=== PATIENT | female | born 1990 | race Caucasian/White ===

== ENCOUNTER 2017-01-28 23:47 | Emergency (ER) | payer MEDICAID, OTHER ==
[~2017-01-28] VITALS: Ht 167.6 cm; Wt 57.0 kg
[2017-01-29 00:01] VITALS: Ht 167.6 cm; Wt 57.0 kg
[2017-01-29 02:50] LABS: URINE BLOOD (Dip) POC Negative (NEGATIVE)
--- NOTE | 2017-01-29 04:06 | ERD ---
ER Documentation Chief Complaint Date/Time DATE: 01/29/17 TIME: 04:03 Chief Complaint pelvic pain, 8 weeks ,dysuria HPI This Azerbaijani-speaking pleasant 26-year-old female presents to emergency department today with low bladder pain, back pain, dysuria, patient denies hematuria, vaginal bleeding, nausea or vomiting. Patient states that she is 6 weeks , -0 patient states that she was evaluated at a clinic last menstrual period was 12/10/2016. ROS All systems reviewed and are negative except as per history of present illness. Allergies Allergies: Coded Allergies: No Known Allergy (Unverified , 01/29/17) PMhx/Soc Medical and Surgical Hx: pt denies Medical Hx, pt denies Surgical Hx Hx Alcohol Use: No Hx Substance Use: No Hx Tobacco Use: No Smoking Status: Never smoker Physical Exam Vitals Vital Signs Date Time Temp Pulse Resp B/P Pulse Ox O2 Delivery O2 Flow Rate FiO2 01/29/17 00:01 99.1 69 18 147/60 98 Vitals stable, triage notes reviewed Physical Exam Const: Well-appearing, no acute Head: Atraumatic Eyes: Normal Conjunctiva PERRLA, EOMI ENT: Normal External Ears, Nose and Mouth. Neck: Resp: Respirations even and unlabored, no respiratory distress Cardio: Abd: Soft, non tender no CVA tenderness Skin: Back: No flank pain, no cervical point tenderness or paraspinal tenderness Ext: Neur: Awake and alert Psych: Normal Mood and Affect Results 24 hrs Laboratory Tests Test 01/29/17 02:54 01/29/17 04:45 Bedside Urine pH (LAB) 6.0 Bedside Urine Protein (LAB) Negative Bedside Urine Glucose (UA) Negative Bedside Urine Ketones (LAB) Negative Bedside Urine Blood Negative Bedside Urine Nitrite (LAB) Negative Bedside Urine Leukocyte Esterase (L Trace Beta HCG, Quantitative 97739.0mIU/ml Current Medications Medications (Trade) Dose Ordered Sig/[place] Route PRN Reason Start Time Stop Time Status Last Admin Dose Admin Acetaminophen 650 mg 650 mg ONCE ONCE PO 01/29/17 04:30 01/29/17 04:31 DC Sodium Chloride (NS) 1,000 ml @ 1,000 mls/hr Q1H STAT IV 01/29/17 04:09 01/29/17 05:08 DC 01/29/17 04:44 Procedures/MDM PROCEDURE: Obstetrical ultrasound. CLINICAL INDICATION: Vaginal bleeding. TECHNIQUE: Multiple sonographic images of the pelvis were obtained with transabdominal and endovaginal technique. Images were obtained with morgan scale and color Doppler. COMPARISON: No prior studies are available for comparison. FINDINGS: There is an intrauterine gestational sac with a pole identified. heart tones of 140 beats per minute are identified. The crown-rump length averages 0.77 cm, compatible with 6 weeks and 5 days. The mean sac diameter averages 1.51 cm, compatible with 6 weeks and 1 day. A yolk sac is identified. There is a subchorionic collection measuring up to 1.8 cm. There is mild free fluid within the posterior cul-de-sac. The right ovary measures 3.8 x 2.3 x 2.5 cm and demonstrates normal flow. The left ovary is not visualized. There is a corpus luteum cyst within the right ovary measuring 2.5 cm. There is no suspicious adnexal mass identified. IMPRESSION: Single live intrauterine with an estimated gestational age of 6 weeks and 3 days, with an ultrasound SYD of 09/21/2017. Subchorionic hemorrhage. Right ovarian 2.5 cm corpus luteum cyst. Mild pelvic free fluid. Left ovary not visualized. .Ad Ha MD, MD Date Time Electronically viewed and signed by .Ad Ha MD, on 01/29/2017 04:58 This 26-year-old female presents to emergency department today for evaluation of abdominal pain, cramping, back pain, and dysuria. Patient is 6 weeks , 3 para 2. Denies vaginal bleeding, vaginal discharge, abnormal nausea or vomiting. Urinary tract infection suspected, urinalysis shows trace leukocytosis likely contamination, no nitrates or microscopic hematuria. Threatened miscarriage, ectopic suspected. Pelvic ultrasound impression single living intrauterine with estimated gestational age of 6 weeks and 3 days with ultrasound SYD. Subchorionic hemorrhage. Right of free 2.5 cm "pissed luteum cyst. Mild pelvic free fluid. Left ovary not visualized. Beta quant 32828.0 patient treated with Tylenol, liter of IV fluid. Patient reports feeling improvement after treatment. Plan to discharge home with Tylenol. appears normal return to emergency department if pain returns, or vaginal bleeding.. I feel the patient is stable for discharge at this time outpatient management by gynecology. I have discussed results, examination findings, the treatment plan with the patient and family present prior to discharge. Indications for emergent reevaluation, side effects of medication were also discussed. All questions were answered. Patient verbalizes understanding and agrees with plan of care. Departure Diagnosis: Primary Impression: Pelvic pain in Condition: Good Patient Instructions: Pelvic Pain, Unknown Cause Additional Instructions: Thank you for for coming to [facility] for your care today. Please ask your nurse or provider if you have questions about your care today and do not leave until all your questions have been answered. Please use any medications given as directed and follow-up with your doctor (or the doctor you were referred to) in the next 2-3 days. If you do not have a primary care doctor you [place] [facility] [place] [facility] [place] You may also use motrin and tylenol as needed for fever and/or pain unless instructed otherwise by your provider or nurse. Indications for more urgent follow-up have been discussed, but you may return to the Emergency Department at ANY time for any worrisome or worsening symptoms. If you have abdominal pain, please know that no test or exam you received is perfect and you should follow up within 8 hours for continued pain. If you had any imaging studies today, such as an X-Ray or CT Scan, these studies will be reviewed later by a radiologist. You will be called if there are important findings that were not identified today, so make sure the contact information you provided at registration is correct. If you received any narcotic pain control medicine today, such as Vicodin, Morphine or Dilaudid, your coordination and judgment may be affected for a number of hours. Please do not drive or operate heavy machinery, and you may want someone to assist you at home. If you were given a prescription for narcotic medication, be aware that it is very addictive- use sparingly and only if necessary. TONE SEGURA Jan 29, 2017 04:06
[2017-01-29] MEDS ORDERED: SOD CHLORIDE 0.9% 1,000 ML IV STA (04:09)
[2017-01-29] MEDS ORDERED: ACETAMINOPHEN 325 MG TAB PO ONE (04:30)
--- NOTE | 2017-01-29 04:58 | RADRPT ---
PROCEDURE: Obstetrical ultrasound. CLINICAL INDICATION: Vaginal bleeding. TECHNIQUE: Multiple sonographic images of the pelvis were obtained with transabdominal and endova ginal technique. Images were obtained with morgan scale and color Doppler. COMPARISON: No prior studies are available for comparison. FINDINGS: There is an intrauterine gestational sac with a pole identified. heart tones of 140 beat s per minute are identified. The crown-rump length averages 0.77 cm, compatible with 6 weeks a nd 5 days. The mean sac diameter averages 1.51 cm, compatible with 6 weeks and 1 day. A yolk sac is identified. There is a subchorionic collection measuring up to 1.8 cm. There is mild free fluid within the posterior cul-de-sac. The right ovary measures 3.8 x 2.3 x 2.5 c m and demonstrates normal flow. The left ovary is not visualized. There is a corpus luteum cyst wi thin the right ovary measuring 2.5 cm. There is no suspicious adnexal mass identified. IMPRESSION: Single live intrauterine with an estimated gestational age of 6 weeks and 3 days, with an ultrasound SYD of 09/21/2017. Subchorionic hemorrhage. Right ovarian 2.5 cm corpus luteum cyst. Mild pelvic free fluid. Left ovary not visualized. .Ad Ha MD, Date Time Electronically viewed and signed by .Ad Ha MD, MD on 01/29/2017 04:58 .T/
[2017-01-29] MEDS ORDERED: ACET325T33 PO (06:41)
== END 2017-01-29 07:12 | disposition home or self-care (01) ==
LOC: FTE 23:47
DX: O26.891 Other specified pregnancy related conditions, first trimester (principal); R10.2 Pelvic and perineal pain; Z3A.01 Less than 8 weeks gestation of pregnancy
CPT/HCPCS: 76801; 76817; 81003; 84702; J7030; 36415

== ENCOUNTER 2017-05-31 10:08 | Inpatient (IN) | payer MEDICAID ==
[~2017-05-31] VITALS: Ht 154.9 cm; Wt 68.6 kg
[~2017-05-31 10:08] MED LIST: ACET325T33 PO
[2017-05-31 10:35] VITALS: Ht 154.9 cm; Wt 68.6 kg
[2017-05-31 10:36] VITALS: BP 96/54; PULSE 102; RESP 20
--- NOTE | 2017-05-31 10:36 | RADRPT ---
PROCEDURE: US OB. Ultrasound cervix CLINICAL INDICATION: Decreased movements , pain TECHNIQUE: Transabdominal views of the pelvis are available for review. In addition, transvaginal images of the cervix were obtained. COMPARISON: No prior studies are available for comparison. FINDINGS: There is a single intrauterine gestation in a breech position. The heart rate is noted at 148 bpm. The placenta is anterior. MVP measures 6.1 cm. The cervix measures 3.5 cm in length. The cervix is closed. RPTAT: AA IMPRESSION: Normal MVP. Cervix is closed and measures 3.5 cm in length. .Ab Sims MD, MD Date Time Electronically viewed and signed by .Ab Sims MD, MD on 05/31/2017 10:36 .S/
[2017-05-31 11:13] LABS: ADD UMIC YES; UR AMORPHOUS CRYSTAL FEW /HPF (NONE SEEN); UR ASCORBIC ACID NEGATIVE (NEGATIVE); UR BACTERIA MODERATE /HPF (NONE SEEN); UR BILIRUBIN (Dip) NEGATIVE (NEGATIVE); UR BLOOD (Dip) NEGATIVE (NEGATIVE); UR CLARITY CLOUDY (CLEAR); UR COLOR YELLOW (YELLOW); UR GLUCOSE (Dip) NEGATIVE (NEGATIVE); UR KETONES (Dip) NEGATIVE (NEGATIVE); UR LEUKOCYTE ESTERASE (Dip) 3+ Leu/ul (NEGATIVE); UR MUCUS FEW /HPF (NONE SEEN); UR NITRITE (Dip) POSITIVE (NEGATIVE); UR RBC 6 /HPF (0-5); UR SPECIFIC GRAVITY (Dip) 1.016 (1.003-1.030); UR SQUAMOUS EPITHELIAL CELL MODERATE /HPF (FEW); UR TOTAL PROTEIN (Dip) 1+ mg/dl (NEGATIVE); UR UROBILINOGEN (Dip) NEGATIVE (NEGATIVE)
[2017-05-31 12:13] LABS: ABNORMAL IP MESSAGE 1; BASOPHILS % 0.1 % (0.0-2.0); HEMATOCRIT 29.6 % (37.0-47.0); HEMOGLOBIN 9.8 g/dl (12.0-16.0); LYMPHOCYTES # 0.6 10^3/ul (0.8-2.9); LYMPHOCYTES % 4.1 % (15.0-51.0); MEAN CORPUSCULAR HEMOGLOBIN 31.4 pg (29.0-33.0); MEAN CORPUSCULAR HGB CONC 33.1 g/dl (32.0-37.0); MEAN CORPUSCULAR VOLUME 94.9 fl (82.0-101.0); MEAN PLATELET VOLUME 10.9 fl (7.4-10.4); MONOCYTE # 0.7 10^3/ul (0.3-0.9); MONOCYTES % 5.3 % (0.0-11.0); NEUTROPHIL # 12.6 10^3/ul (1.6-7.5); NEUTROPHILS % 89.9 % (39.0-77.0); PLATELET COUNT 171 10^3/UL (140-415); RED BLOOD COUNT 3.12 10^6/ul (4.20-5.40); RED CELL DISTRIBUTION WIDTH 13.3 % (11.5-14.5); WHITE BLOOD COUNT 14.1 10^3/ul (4.8-10.8)
[2017-05-31 12:20] LABS: POSITIVE DIFF @See below
[2017-05-31] MEDS ORDERED: CEFTRIAXONE 2 GM INJ IM ONE (12:30)
[2017-05-31] MEDS ORDERED: LACTATED RINGER'S 1,000 ML IV SCH (12:40)
[2017-05-31] MEDS ORDERED: NIFEdipine 10 MG CAP PO ONE (13:30)
[2017-05-31] MEDS ORDERED: CEFAZOLIN 1 GM/50 ML (PMX) 50 ML IV SCH (13:30)
[2017-05-31] MEDS ORDERED: NACL 0.9% 3 ML SYG IV SCH (13:30)
[2017-05-31] MEDS ORDERED: CEFAZOLIN 2 GM/50 ML (PMX) 50 ML IV ONE (14:00)
[2017-05-31 14:30] LABS: ABNORMAL IP MESSAGE 1; BASOPHILS % 0.1 % (0.0-2.0); HEMATOCRIT 28.5 % (37.0-47.0); HEMOGLOBIN 9.5 g/dl (12.0-16.0); LYMPHOCYTES # 0.3 10^3/ul (0.8-2.9); LYMPHOCYTES % 3.4 % (15.0-51.0); MEAN CORPUSCULAR HEMOGLOBIN 31.4 pg (29.0-33.0); MEAN CORPUSCULAR HGB CONC 33.3 g/dl (32.0-37.0); MEAN CORPUSCULAR VOLUME 94.1 fl (82.0-101.0); MEAN PLATELET VOLUME 10.9 fl (7.4-10.4); MONOCYTE # 0.1 10^3/ul (0.3-0.9); MONOCYTES % 1.2 % (0.0-11.0); NEUTROPHIL # 8.7 10^3/ul (1.6-7.5); NEUTROPHILS % 94.8 % (39.0-77.0); PLATELET COUNT 158 10^3/UL (140-415); RED BLOOD COUNT 3.03 10^6/ul (4.20-5.40); RED CELL DISTRIBUTION WIDTH 13.3 % (11.5-14.5); WHITE BLOOD COUNT 9.2 10^3/ul (4.8-10.8)
[2017-05-31 14:32] LABS: POSITIVE DIFF @See below
[2017-05-31 14:55] LABS: ALBUMIN 2.8 g/dl (3.3-4.9); ALBUMIN/GLOBULIN RATIO 0.87; BILIRUBIN,INDIRECT 0.7 mg/dl (0-1.1); BILIRUBIN,TOTAL 0.7 mg/dl (0.2-1.3); CREATININE 0.48 mg/dl (0.44-1.00)
[2017-05-31 15:03] LABS: POTASSIUM 2.7 mmol/L (3.5-5.1)
[2017-05-31] MEDS ORDERED: POTASSIUM CHLORIDE (SR) 20 MEQ TAB PO STA (15:11)
--- NOTE | 2017-05-31 15:13 | CONS ---
Date/Time of Note Date/Time of Note DATE: 05/31/17 TIME: 14:59 Assessment/Plan Assessment/Plan Additional Assessment/Plan 1. Acute pyelonephritis - Patient has +UA and CVA tenderness which is most consistent with pyelonephritis - Agree with Ceftriaxone 1gm [id number]. If fevers persist will consider ID consult for assistance - Tylenol PRN for fevers - Blood cultures drawn and results pending - CMP ordered and results pending 2. Sore Throat - throat swab sent 3. Leukocytosis - WBC trending down since admission - Will continue to monitor 4. Intrauterine - care per primary OB team - On vitamins 5. Mild anemia most likely secondary to - will do iron studies 6. hypokalemia - 2.7, replace - Will continue to monitor Thank you for the consult. Please call with any questions Consultation Date/Type/Reason Admit Date/Time May 31, 2017 at 13:17 Date of Consultation: May 31, 2017 Reason for Consultation Medical comanagement Hx of Present Illness 26 yo F with PMH hypotension presents to ED with c/o fever since last night and abdominal pressure for the past 2 days. Patient was found to have temp 100.3F in ED but when reached the floor, fever was 103F. Patient denies experiencing these symptoms during her past pregnancies. She does c/o epigastric discomfort with shortness of breath. Her abdominal pressure is in the lower abdomen/ suprapubic area but denies any dysuria, blood in urine, or discharge. Denies any nausea, vomiting, headaches, constipation, diarrhea, or palpitations. Constitutional: febrile, No disoriented, No poor po Eyes: no complaints ENT: congestion, sore throat Respiratory: shortness of breath, No cough, No sputum, No wheezing Cardiovascular: chest pain, No lightheadedness, No palpitations Gastrointestinal: other (pressure in lower abdominal area), No constipation, No diarrhea, No nausea, No vomiting Genitourinary: flank pain, No bleeding, No discharge, No dysuria, No hematuria Musculoskeletal: back pain Skin: No erythema, No pruritis, No rash Neurologic: no complaints Endocrine: no complaints Lymphatic: no complaints Psychological: no complaints Immunologic: no complaints Past Medical History Medical History: no pertinent history Past Surgical History Past Surgical Hx: other (cesarian ) Family History Significant Family History: no pertinent family hx Social History Alcohol Use: none Smoking Status: Never smoker Drug Use: none Exam/Review of Systems Vital Signs Vitals Vital Signs Date Time Temp Pulse Resp B/P Pulse Ox O2 Delivery O2 Flow Rate FiO2 05/31/17 10:36 98.6 102 20 96/54 100 Room Air Exam Constitutional: alert, oriented, well developed Psych: nl mood/affect Head: atraumatic, normocephalic Eyes: EOMI, PERRL, nl sclera ENMT: mucosa pink and moist, nl external ears & nose Neck: non-tender, supple Respiratory: clear to auscultation, No crackles/rales, No labored breathing, No wheezing Cardiovascular: irregular rhythm (tachycardia), No edema, No systolic murmur Gastrointestinal: distended, soft, No bowel sounds, No firm, No rebound or guarding Genitourinary - Female: CVA tenderness Musculoskeletal: nl extremities to inspection Extremities: No clubbing, No cyanosis Neurological: INCOME TAX EXPERT II-XII intact, nl mental status, nl speech Skin: nl turgor Lymph: nl lymph nodes Results Result Diagram: 05/31/17 1414 Results 24 hrs Laboratory Tests Test 05/31/17 10:23 05/31/17 11:59 05/31/17 14:14 Urine Color YELLOW Urine Clarity CLOUDY A Urine pH 5.0 Urine Specific [place] 1.016 Urine Ketones NEGATIVE Urine Nitrite POSITIVE A Urine Bilirubin NEGATIVE Urine Urobilinogen NEGATIVE Urine Leukocyte Esterase 3+ H Urine Microscopic RBC 6 H Urine Microscopic WBC > 182 H Urine Squamous Epithelial Cells MODERATE Urine Amorphous Crystals FEW A Urine Bacteria MODERATE Urine Mucus FEW A Urine Hemoglobin NEGATIVE Urine Glucose NEGATIVE Urine Total Protein 1+ H White Blood Count 14.1 H 9.2 # Red Blood Count 3.12 L 3.03 L Hemoglobin 9.8 L 9.5 L Hematocrit 29.6 L 28.5 L Mean Corpuscular Volume 94.9 94.1 Mean Corpuscular Hemoglobin 31.4 31.4 Mean Corpuscular Hemoglobin Concent 33.1 33.3 Red Cell Distribution Width 13.3 13.3 Platelet Count 171 158 Mean Platelet Volume 10.9 H 10.9 H Neutrophils % 89.9 H 94.8 H Lymphocytes % 4.1 L 3.4 L Monocytes % 5.3 1.2 Eosinophils % 0.0 0.0 Basophils % 0.1 0.1 Nucleated Red Blood Cells % 0.0 0.0 Neutrophils # 12.6 H 8.7 H Lymphocytes # 0.6 L 0.3 L Monocytes # 0.7 0.1 L Eosinophils # 0.0 0.0 Basophils # 0.0 0.0 Nucleated Red Blood Cells # 0.0 0.0 Medications Medications Current Medications Lactated Ringer's (Lr) 1,000 ml @ 125 mls/hr Q8H IV Last administered on 05/31t 12:47; Admin Dose 125 MLS/HR; Start 05/31/17 at 12:40 Prenat Multivit/ [place]/Iron/Folic Ac () 1 tab DAILY PO ; Start at 09:00 Acetaminophen 650 mg 650 mg Q4H PRN PO PAIN AND OR ELEVATED TEMP; Start at 13:30 Ceftriaxone Sodium (Rocephin) 50 ml @ 100 mls/hr Q24H IVPB ; Start 05/31/17 at 14:30 EDI TORRES MD May 31, 2017 15:11
--- NOTE | 2017-05-31 15:25 | TRIAGE ---
OB Triage Datetime Report Generated by CPN: 05/31/2017 15:25 Datetime: 05/31/2017 14:25 Assessment Type: Admission Assessment Vaginal Bleeding: None Maternal Assessment Level of Consciousness: Fully Conscious DTR's/Clonus: DTRs 2+; No Clonus Headache: Denies Blurred Vision: No Respiratory Effort: Unlabored; Regular Rhythm; Equal Expansion Breath Sounds, Left: Clear and Equal Breath Sounds, Right: Clear and Equal Nausea/Vomiting: Denies RUQ Epigastric Pain: Denies Lower Extremities Edema: None Degree: None Upper Extremities Edema: None Degree: None Facial Edema: None Fall Risk Assessment History of Falling: (0) No Secondary Diagnosis: (0) No Ambulatory Aid: (0) Bedrest/Nurse Assist IV Therapy: (20) Yes Gait: (0) Normal/Bedrest/Immobile Mental Status: (0) Oriented to Own Ability Fall Score: 20 Fall Risk Score Definition: No Risk: No action required Pain Assessment Pain Scale: 4 Pain Type: Stabbing Pain Location: Right Flank Datetime: 05/31/2017 10:44 Time of Arrival: 05/31/2017 10:04 EGA: 24.6 Arrived By: Ambulatory Arrived From: Home Chief Complaint: VAGINAL PRESSURE SINCE 2200 Movement: Present Contractions: Denies/Absent Rupture of Membranes: Denies Vaginal Bleeding: None Vaginal Discharge: Denies Recent Sexual Intercouse: Denies Abdominal Trauma: Not Applicable Time Provider Notified: 05/31/2017 12:13 Provider Notified: DR. GERBER Initial Plan: NST AND CALL
[2017-05-31] MEDS: SOD CHLORIDE 0.9% 1,000 ML IV SCH (15:42)
[2017-05-31] MEDS: CEFTRIAXONE 1 GM/50 ML (PMX) 50 ML IVPB SCH (15:53)
[2017-05-31] MEDS: ACETAMINOPHEN 325 MG TAB PO PRN ×2 (15:53→20:49)
[2017-05-31] MEDS ORDERED: POTASSIUM CHLORIDE 250 ML IVPB ONE (16:30)
[2017-05-31 16:38] LABS: IRON 14 ug/dl (35-150)
[2017-05-31 16:47] LABS: TOTAL IRON BINDING CAPACITY 414 ug/dl (241-421)
--- NOTE | 2017-05-31 17:16 | HP ---
Date/Time of Note Date/Time of Note DATE: 05/31/17 TIME: 16:53 OB - History Hx of Present Free Text/Dictation 26 years old female 24 weeks 5 days with EDC September 14, 2017 admitted to [facility] chief complaint of chills and fever, low back pain, on admission temperature was 100.3 later on she complained of chills followed with the elevated temperature to 103 after applying cooling measures temperature went down to 98.6 Chief Complaint: 24 weeks 5 days low back pain, chills and fever Estimated Due Date: Sep 14, 2017 : 3 Para: 2 Spontaneous : 0 Therapeutic : 0 Care: Limited Care Ultrasounds: Other (No records available) Obstetrical Complications: None Past Family/Social History * Past Medical, Surgical, Family and Obstetric Histories reviewed from chart. Rubella: immune RPR/VDRL: Negative GBS Status: Unknown HBsAG: Negative OB Admission Exam Vital Signs Vital Signs Vital Signs Date Time Temp Pulse Resp B/P Pulse Ox O2 Delivery O2 Flow Rate FiO2 05/31/17 10:36 98.6 102 20 96/54 100 Room Air Physical Exam HEENT: WNL Heart: Rhythm Normal Lungs: Clear, Equal Abdomen: Abnormal (Low back pain, bilateral CVA tenderness) Extremities: Other (Sporadic rash both legs following waxing) Reflexes: Normal Cervical Dilatation: other (Third) Membranes: Intact Decelerations: No Decelerations Varibility: Moderate Contractions on Admission: None Last 72 hours Lab Results CBC & BMP 05/31/17 11:59 05/31/17 14:14 Liver Function Test 05/31/17 14:14 Alanine Aminotransferase (ALT/SGPT) 26 Albumin 2.8 L Alkaline Phosphatase 80 Aspartate Amino Transf (AST/SGOT) 15 Direct Bilirubin 0.00 Total Protein 6.0 L OB Assessment/Plan Reason for admission: other (24 weeks 5 days suspected pyelonephritis) Plan: Other (This is a 26 years old female EDC September 14, 2017 admitted with chief complaint of low back pain chills and fever preliminary diagnosis acute pyelonephritis , received Rocephin 1 g IV urine sent out for urinalysis and culture and sensitivity, blood culture 3 every 30 minutes for temperature higher than 102, cooling measure, internal medicine consultation obtained agreed with the plan of treatment) TANVIR GERBER MD May 31, 2017 17:03
[2017-06-01] MEDS: SOD CHLORIDE 0.9% 1,000 ML IV SCH ×4 (03:44→23:03)
[2017-06-01] MEDS: ACETAMINOPHEN 325 MG TAB PO PRN ×3 (05:12→18:04)
[2017-06-01 07:42] LABS: ABNORMAL IP MESSAGE 1; HEMOGLOBIN 9.4 g/dl (12.0-16.0); MEAN CORPUSCULAR HEMOGLOBIN 32.6 pg (29.0-33.0); MEAN CORPUSCULAR HGB CONC 33.6 g/dl (32.0-37.0); MEAN CORPUSCULAR VOLUME 97.2 fl (82.0-101.0); MEAN PLATELET VOLUME 11.8 fl (7.4-10.4); PLATELET COUNT 153 10^3/UL (140-415); RED BLOOD COUNT 2.88 10^6/ul (4.20-5.40); RED CELL DISTRIBUTION WIDTH 13.5 % (11.5-14.5); WHITE BLOOD COUNT 23.1 10^3/ul (4.8-10.8)
[2017-06-01 08:02] LABS: CALCIUM 7.5 mg/dl (8.4-10.2); CREATININE 0.41 mg/dl (0.44-1.00); MAGNESIUM 1.6 mg/dl (1.7-2.5); PHOSPHORUS 2.7 mg/dl (2.5-4.9); POTASSIUM 3.3 mmol/L (3.5-5.1)
[2017-06-01 08:11] LABS: POSITIVE DIFF @See below
[2017-06-01] MEDS: PRENATAL VITAMIN PO SCH (09:12)
[2017-06-01 09:31] LABS: MONOCYTES % (M) 2 % (0-11); PLATELET ESTIMATE NORMAL; REACTIVE LYMPHOCYTES% (M) 1 % (0-0)
[2017-06-01] MEDS ORDERED: CEFTRIAXONE 1 GM/50 ML (PMX) 50 ML IVPB SCH (13:00)
[2017-06-01] MEDS: CEFTRIAXONE 1 GM/50 ML (PMX) 50 ML IVPB SCH (15:07)
[2017-06-01] MEDS ORDERED: POTASSIUM CHLORIDE (SR) 20 MEQ TAB PO STA (15:36)
--- NOTE | 2017-06-01 15:50 | CONS ---
Date/Time of Note Date/Time of Note DATE: 06/01/17 TIME: 15:38 Assessment/Plan Assessment/Plan Chief Complaint/Hosp Course 26 yo F presented with fevers and abdominal pressure with CVA tenderness bilaterally found to have pyelonephritis Problems: Additional Assessment/Plan 1. Acute pyelonephritis- improving - UA+ and Urine culture growing gram negative rods. Will await final cultures and sensitivities in order to transition from IV antibiotics to PO - CVA tenderness improving - Continue on Ceftriaxone until final cultures return - Tylenol PRN for fevers - Blood cultures negative 2. Hypokalemia - 3.1, replaced - continue to monitor 3. Hypomag - 1.6, replaced 4. Iron deficiency anemia - Studies show low iron and TIBC - will need IV iron. Will leave up to OB 5. Sore Throat - throat swab sent and negative 6. Leukocytosis - WBC elevated and will continue to monitor. If continues to worsen will need to reevaluate antibiotics and possible ID consultation - Will continue to monitor 7. Intrauterine - care per primary OB team - On vitamins Consultation Date/Type/Reason Admit Date/Time May 31, 2017 at 13:17 Initial Consult Date 05/31/17 Reason for Consultation medical comanagement 24 HR Interval Summary Constitutional: no complaints Exam/Review of Systems Vital Signs Vitals Vital Signs Date Time Temp Pulse Resp B/P Pulse Ox O2 Delivery O2 Flow Rate FiO2 05/31/17 10:36 98.6 102 20 96/54 100 Room Air Intake and Output 05/31/17 05/31/17 06/01/17 15:00 23:00 07:00 Intake Total 1425 ml 1000 ml Output Total 700 ml 400 ml Balance 725 ml 600 ml Exam Constitutional: alert, oriented, well developed, No distress Psych: no complaints Head: atraumatic, normocephalic Eyes: EOMI, PERRL Neck: non-tender, supple Respiratory: clear to auscultation, No crackles/rales, No diminished breath sounds, No wheezing Cardiovascular: regular rate and rhythm, No systolic murmur Gastrointestinal: distended, soft, No rebound or guarding, No tender Genitourinary - Female: CVA tenderness (right ) Musculoskeletal: nl extremities to inspection Extremities: normal pulses, No clubbing, No cyanosis, No edema Neurological: CLOTH FINISHING RANGE OPERATOR II-XII intact, nl mental status, nl speech Skin: nl turgor Lymph: nl lymph nodes Results Result Diagram: 06/01/17 0611 06/01/17 0612 Results 24 hrs Laboratory Tests Test 05/31/17 15:39 06/01/17 06:11 06/01/17 06:12 Iron Level 14 L Total Iron Binding Capacity 414 Percent Iron Saturation 3 L White Blood Count 23.1 #H Red Blood Count 2.88 L Hemoglobin 9.4 L Hematocrit 28.0 L Mean Corpuscular Volume 97.2 Mean Corpuscular Hemoglobin 32.6 Mean Corpuscular Hemoglobin Concent 33.6 Red Cell Distribution Width 13.5 Platelet Count 153 Mean Platelet Volume 11.8 H Neutrophils % Segmented Neutrophils % (Manual) 76 Band Neutrophils % (Manual) 17 H Lymphocytes % Lymphocytes % (Manual) 4 L Reactive Lymphocytes % (Manual) 1 H Monocytes % Monocytes % (Manual) 2 Eosinophils % Basophils % Nucleated Red Blood Cells % 0.0 Neutrophils # Neutrophils # (Manual) 18.5 H Band Neutrophils # 3.9 H Absolute Lymphocytes (Manual) 0.9 Lymphocytes # Reactive Lymphocytes # 0.2 H Monocytes # Absolute Monocytes (Manual) 0.4 Eosinophils # Basophils # Nucleated Red Blood Cells # Platelet Estimate NORMAL Sodium Level 140 Potassium Level 3.3 L Chloride Level 112 H Carbon Dioxide Level 17 L Anion Gap 14 Blood Urea Nitrogen 4 L Creatinine 0.41 L Glucose Level 82 Calcium Level 7.5 L Phosphorus Level 2.7 Magnesium Level 1.6 L Albumin 3.0 L Medications Medications Current Medications Prenat Multivit/ Traffic Expert/Iron/Folic Ac () 1 tab DAILY PO Last administered on 06/01/17 09:12; Admin Dose 1 TAB; Start 06/01/17 at 09:00 Acetaminophen 650 mg 650 mg Q4H PRN PO PAIN AND OR ELEVATED TEMP Last administered on 06/01/17 09:13; Admin Dose 650 MG; Start 05/31/17 at 13:30 Ceftriaxone Sodium 50 ml @ 100 mls/hr Q24H IVPB Last administered on 15:07; Admin Dose 100 MLS/HR; Start 05/31/17 at 14:30 Sodium Chloride (NS) 1,000 ml @ 125 mls/hr Q8H IV Last administered on 12:36; Admin Dose 125 MLS/HR; Start 05/31/17 at 15:30 Potassium Chloride 40 meq 40 meq 1935 ONCE PO ; Start 06/01/17 at 19:35; Stop 06/01/17 at 19:36; Status UNV Magnesium Sulfate (Magnesium Sulfate 2 Gm/50 ml) 50 ml @ 25 mls/hr ONCE ONCE IVPB ; Start 06/01/17 at 16:00; Stop 06/01/17 at 17:59; Status UNV EDI TORRES MD Jun 01, 2017 15:50
--- NOTE | 2017-06-01 16:36 | QN ---
Documentation Comment Afebrile, last temperature at 0100, 100.3 no more chills or fever all day today , currently on Rocephin 1 g q. day urine culture final report not available ,we will continue present treatment till final l culture report is available. TANVIR GERBER MD Jun 01, 2017 16:36
[2017-06-01] MEDS ORDERED: MAGNESIUM SULFATE 2 GM/50 ML 50 ML IVPB ONE (17:00)
[2017-06-01] MEDS: POTASSIUM CHLORIDE (SR) 20 MEQ TAB PO ONE ×2 (19:35→22:00)
[2017-06-01] MEDS: GENTAMICIN 80 MG in SOD CHLORIDE 0.9% 100 ML IV SCH (20:10)
[2017-06-01] MEDS: AMPICILLIN 1.5 GM in SOD CHLORIDE 0.9% 100 ML IVPB SCH (21:37)
[2017-06-02] MEDS: AMPICILLIN 1.5 GM in SOD CHLORIDE 0.9% 100 ML IVPB SCH ×2 (03:45→06:00)
[2017-06-02] MEDS: GENTAMICIN 80 MG in SOD CHLORIDE 0.9% 100 ML IV SCH ×3 (03:46→18:53)
[2017-06-02 06:53] LABS: BASOPHILS % 0.1 % (0.0-2.0); EOSINOPHILS # 0.1 10^3/ul (0.0-0.5); EOSINOPHILS % 0.4 % (0.0-7.0); HEMOGLOBIN 8.5 g/dl (12.0-16.0); LYMPHOCYTES # 1.1 10^3/ul (0.8-2.9); LYMPHOCYTES % 7.5 % (15.0-51.0); MEAN CORPUSCULAR HEMOGLOBIN 31.5 pg (29.0-33.0); MEAN CORPUSCULAR HGB CONC 32.7 g/dl (32.0-37.0); MEAN CORPUSCULAR VOLUME 96.3 fl (82.0-101.0); MEAN PLATELET VOLUME 11.7 fl (7.4-10.4); MONOCYTE # 0.8 10^3/ul (0.3-0.9); NEUTROPHILS % 85.4 % (39.0-77.0); PLATELET COUNT 144 10^3/UL (140-415); RED CELL DISTRIBUTION WIDTH 13.9 % (11.5-14.5); WHITE BLOOD COUNT 14.1 10^3/ul (4.8-10.8)
[2017-06-02 07:27] LABS: ALBUMIN 2.7 g/dl (3.3-4.9); CALCIUM 7.9 mg/dl (8.4-10.2); CREATININE 0.43 mg/dl (0.44-1.00); MAGNESIUM 1.6 mg/dl (1.7-2.5); PHOSPHORUS 2.8 mg/dl (2.5-4.9); POTASSIUM 3.6 mmol/L (3.5-5.1)
[2017-06-02] MEDS: SOD CHLORIDE 0.9% 1,000 ML IV SCH ×2 (08:15→17:20)
[2017-06-02] MEDS: PRENATAL VITAMIN PO SCH (08:46)
[2017-06-02] MEDS: ACETAMINOPHEN 325 MG TAB PO PRN ×2 (08:46→18:05)
--- NOTE | 2017-06-02 09:59 | QN ---
Documentation Comment Afebrile the last 24 hour, denies low back pain, no CVA tenderness, currently on Rocephin 1 g daily, WBC down from 23,000 14,000, seems she is improving, considering discharge a.m. a.m. on Macrobid 100 mg twice daily if okay with internal medicine . TANVIR GERBER MD Jun 02, 2017 09:59
--- NOTE | 2017-06-02 10:08 | CONS ---
Date/Time of Note Date/Time of Note DATE: 06/02/17 TIME: 10:08 Assessment/Plan Assessment/Plan Chief Complaint/Hosp Course 26 yo F presented with fevers and abdominal pressure with CVA tenderness bilaterally found to have pyelonephritis Problems: Additional Assessment/Plan 1. Acute pyelonephritis- improving - UA+ and Urine culture growing Ecoli resistent to amp/gent - ID consulted and appreciate recommendations. Place patient back on Ceftriaxone given Ecoli resistant to Ampicillin - CVA tenderness resolved - Tylenol PRN for fevers - Blood cultures negative 2. Hypokalemia - 3.5, stable - continue to monitor 3. Hypomag - 1.6, replaced 4. Iron deficiency anemia - Studies show low iron and TIBC - will need IV iron. Will leave up to OB 5. Leukocytosis - WBC still elevated but trending downward. - Will continue to monitor 6. Intrauterine - care per primary OB team - On vitamins Consultation Date/Type/Reason Admit Date/Time May 31, 2017 at 13:17 Initial Consult Date 05/31/17 Reason for Consultation medical comanagement 24 HR Interval Summary Constitutional: improved Exam/Review of Systems Vital Signs Vitals Vital Signs Date Time Temp Pulse Resp B/P Pulse Ox O2 Delivery O2 Flow Rate FiO2 05/31/17 10:36 98.6 102 20 96/54 100 Room Air Intake and Output 06/01/17 06/01/17 06/02/17 15:00 23:00 07:00 Intake Total 750 ml 2500 ml Output Total 2500 ml 1250 ml Balance 750 ml 0 ml -1250 ml Exam Constitutional: alert, oriented, well developed, No distress Head: atraumatic, normocephalic Eyes: EOMI, PERRL Neck: non-tender, supple Respiratory: clear to auscultation, No crackles/rales, No diminished breath sounds, No wheezing Cardiovascular: regular rate and rhythm, No systolic murmur Gastrointestinal: distended, soft, No rebound or guarding, No tender Genitourinary - Female: no CVA tenderness Musculoskeletal: nl extremities to inspection Extremities: normal pulses, No clubbing, No cyanosis, No edema Neurological: RADIOGRAPHER CARDIAC CATHETERIZATION II-XII intact, nl mental status, nl speech Results Result Diagram: 06/02/17 0616 06/02/17 0617 Results 24 hrs Laboratory Tests Test 06/02/17 06:16 06/02/17 06:17 White Blood Count 14.1 #H Red Blood Count 2.70 L Hemoglobin 8.5 L Hematocrit 26.0 L Mean Corpuscular Volume 96.3 Mean Corpuscular Hemoglobin 31.5 Mean Corpuscular Hemoglobin Concent 32.7 Red Cell Distribution Width 13.9 Platelet Count 144 Mean Platelet Volume 11.7 H Neutrophils % 85.4 H Lymphocytes % 7.5 L Monocytes % 6.0 Eosinophils % 0.4 Basophils % 0.1 Nucleated Red Blood Cells % 0.0 Neutrophils # 12.0 H Lymphocytes # 1.1 Monocytes # 0.8 Eosinophils # 0.1 Basophils # 0.0 Nucleated Red Blood Cells # 0.0 Sodium Level 138 Potassium Level 3.6 Chloride Level 111 H Carbon Dioxide Level 19 L Anion Gap 12 Blood Urea Nitrogen 3 L Creatinine 0.43 L Glucose Level 79 Calcium Level 7.9 L Phosphorus Level 2.8 Magnesium Level 1.6 L Albumin 2.7 L Medications Medications Current Medications Prenat Multivit/ [place]/Iron/Folic Ac () 1 tab DAILY PO Last administered on 06/02/17 08:46; Admin Dose 1 TAB; Start 06/01/17 at 09:00 Acetaminophen 650 mg 650 mg Q4H PRN PO PAIN AND OR ELEVATED TEMP Last administered on 06/02/17 08:46; Admin Dose 650 MG; Start 05/31/17 at 13:30 Sodium Chloride 1,000 ml @ 125 mls/hr Q8H IV Last administered on 06/02/17 08:15; Admin Dose 125 MLS/HR; Start 05/31/17 at 15:30 Ampicillin 1.5 gm/ Sodium Chloride 100 ml @ 200 mls/hr Q6 IVPB Last administered on 06/02/17 03:45; Admin Dose 200 MLS/HR; Start 06/01/17 at 19: 00 Gentamicin Sulfate/Sodium Chloride (Gentamicin/NS) 102 ml @ 102 mls/hr Q8H IV Last administered on 06/02/17 03:46; Admin Dose 102 MLS/HR; Start 06/01/17 at 19:00 EDI TORRES MD Jun 02, 2017 10:08
[2017-06-02] MEDS ORDERED: MAGNESIUM SULFATE 4 GM/100 ML 100 ML IVPB ONE (10:30)
--- NOTE | 2017-06-02 11:59 | CONS ---
DATE OF ADMISSION: 05/31/2017 DATE OF CONSULTATION: 06/02/2017 TYPE OF CONSULTATION: Infectious Disease. REASON FOR CONSULTATION: Antibiotic management. HISTORY OF PRESENT ILLNESS: Birdie Alford is a 26-year-old female, G3, P2, at 24 week s and 5 days. She was admitted to [facility] with complaints of fever and chills, low back pain. On admission, her temperature was 100.3. She complains that her temperature was up to 103 a nd after applying cooling measures went down to 98.6. On admission, her white count was 14.1, H and H of 9.8, 29.6, platelet count 171. BUN and creatinine 4/0.48. The patient was felt to have pyelo nephritis. She had low back pain with fever. She was started on Rocephin. MICROBIOLOGY: Urine culture came back E. coli sensitive to cefazolin, cefotaxime, Cipro. She had n ormal respiratory rubén. She is currently on ampicillin and gentamicin. The ceftriaxone was stoppe d. PAST MEDICAL HISTORY: Operations as outlined. FAMILY HISTORY: Noncontributory. SOCIAL HISTORY: She does not smoke, drink or abuse drugs. ALLERGIES: NONE TO PENICILLIN, SULFA OR FOODS. MEDICATIONS: Per chart. REVIEW OF SYSTEMS: As per HPI. PHYSICAL EXAMINATION: GENERAL: The patient is a well-developed, well-nourished female, alert, responsive, in no acute dis tress. VITAL SIGNS: Stable. She is afebrile. T-max was 103. SKIN: Without generalized rash. HEENT: Within normal limits. NECK: Supple. LYMPH NODES: None palpable. CHEST: Clear to P and A. HEART: Without murmur, rub or gallop. ABDOMEN: Soft, somewhat tender. She has CVA tenderness. RECTAL AND GENITAL: Deferred. NEUROLOGIC: No focal neurological abnormalities. Today, her white count is 14.1. IMAGING STUDIES: ultrasound is normal for a female. IMPRESSION AND PLAN: Patient had fever, but she is responsive to ceftriaxone. We are going to disc ontinue the ampicillin and place her back on ceftriaxone because her urine is growing E. coli sensit bk to the cephalosporins. I will dictate my findings to Dr. Espinoza. Dictated By: MARGA ARREODNDO MD, JD/BELTRAN Conf#: [id number] [facility]#: [id number]
[2017-06-02] MEDS: CEFTRIAXONE 1 GM/50 ML (PMX) 50 ML IVPB SCH (12:05)
[2017-06-03] MEDS: GENTAMICIN 80 MG in SOD CHLORIDE 0.9% 100 ML IV SCH (03:16)
[2017-06-03] MEDS: SOD CHLORIDE 0.9% 1,000 ML IV SCH ×4 (04:31→21:43)
[2017-06-03 05:45] LABS: BASOPHILS % 0.2 % (0.0-2.0); EOSINOPHILS % 0.4 % (0.0-7.0); HEMOGLOBIN 9.8 g/dl (12.0-16.0); LYMPHOCYTES # 0.8 10^3/ul (0.8-2.9); MEAN CORPUSCULAR HEMOGLOBIN 32.2 pg (29.0-33.0); MEAN CORPUSCULAR HGB CONC 33.8 g/dl (32.0-37.0); MEAN CORPUSCULAR VOLUME 95.4 fl (82.0-101.0); MEAN PLATELET VOLUME 10.9 fl (7.4-10.4); MONOCYTE # 0.7 10^3/ul (0.3-0.9); MONOCYTES % 8.6 % (0.0-11.0); NEUTROPHIL # 6.6 10^3/ul (1.6-7.5); NEUTROPHILS % 79.8 % (39.0-77.0); PLATELET COUNT 168 10^3/UL (140-415); RED BLOOD COUNT 3.04 10^6/ul (4.20-5.40); RED CELL DISTRIBUTION WIDTH 13.5 % (11.5-14.5); WHITE BLOOD COUNT 8.3 10^3/ul (4.8-10.8)
[2017-06-03 06:11] LABS: CALCIUM 7.9 mg/dl (8.4-10.2); CREATININE 0.46 mg/dl (0.44-1.00); MAGNESIUM 1.7 mg/dl (1.7-2.5); PHOSPHORUS 3.6 mg/dl (2.5-4.9); POTASSIUM 3.6 mmol/L (3.5-5.1)
[2017-06-03] MEDS: PRENATAL VITAMIN PO SCH (09:22)
[2017-06-03] MEDS: ACETAMINOPHEN 325 MG TAB PO PRN (09:25)
[2017-06-03] MEDS: CEFTRIAXONE 1 GM/50 ML (PMX) 50 ML IVPB SCH (11:58)
[2017-06-03] MEDS ORDERED: POTASSIUM CHLORIDE (SR) 20 MEQ TAB PO STA (13:45)
--- NOTE | 2017-06-03 13:49 | CONS ---
Date/Time of Note Date/Time of Note DATE: 06/03/17 TIME: 13:46 Assessment/Plan Assessment/Plan Chief Complaint/Hosp Course 26 yo F presented with fevers and abdominal pressure with CVA tenderness bilaterally found to have pyelonephritis Problems: Additional Assessment/Plan 1. Acute pyelonephritis- improving - UA+ and Urine culture growing Ecoli - ID consulted and appreciate recommendations. Currently on Ceftriaxone - WBC normalized - CVA tenderness resolved - Tylenol PRN for fevers - Blood cultures negative 2. Hypokalemia - 3.6, replaced - continue to monitor 3. Hypomag - 1.7 4. Iron deficiency anemia - Studies show low iron and TIBC - will need IV iron. Will leave up to OB 5. Leukocytosis- resolved - Will continue to monitor 6. Intrauterine - care per primary OB team - On vitamins 7. Swelling LUE 2/2 IV site insertion - Place warm compress and instructed patient to keep elevated on pillow. Pulses intact Consultation Date/Type/Reason Admit Date/Time May 31, 2017 at 13:17 Initial Consult Date 05/31/17 Reason for Consultation medical comanagement 24 HR Interval Summary Constitutional: no complaints Exam/Review of Systems Vital Signs Vitals Vital Signs Date Time Temp Pulse Resp B/P Pulse Ox O2 Delivery O2 Flow Rate FiO2 05/31/17 10:36 98.6 102 20 96/54 100 Room Air Intake and Output 06/02/17 06/02/17 06/03/17 15:00 23:00 07:00 Intake Total 1075 ml 977 ml 1589.5 ml Output Total 2300 ml 1450 ml Balance -1225 ml 977 ml 139.5 ml Exam Constitutional: alert, oriented, well developed, No distress Head: atraumatic, normocephalic Eyes: EOMI, PERRL Neck: non-tender, supple Respiratory: clear to auscultation, No crackles/rales, No diminished breath sounds, No wheezing Cardiovascular: regular rate and rhythm, No systolic murmur Gastrointestinal: distended, soft, No rebound or guarding, No tender Genitourinary - Female: no CVA tenderness Musculoskeletal: nl extremities to inspection Extremities: normal pulses, No clubbing, No cyanosis, Erythema LUE at site of previous IV insertion. Neurological: CASTINGS TRIMMER II-XII intact, nl mental status, nl speech Results Result Diagram: 06/03/17 0526 06/03/17 0526 Results 24 hrs Laboratory Tests Test 06/03/17 05:26 White Blood Count 8.3 # Red Blood Count 3.04 L Hemoglobin 9.8 L Hematocrit 29.0 L Mean Corpuscular Volume 95.4 Mean Corpuscular Hemoglobin 32.2 Mean Corpuscular Hemoglobin Concent 33.8 Red Cell Distribution Width 13.5 Platelet Count 168 Mean Platelet Volume 10.9 H Neutrophils % 79.8 H Lymphocytes % 10.0 L Monocytes % 8.6 Eosinophils % 0.4 Basophils % 0.2 Nucleated Red Blood Cells % 0.0 Neutrophils # 6.6 Lymphocytes # 0.8 Monocytes # 0.7 Eosinophils # 0.0 Basophils # 0.0 Nucleated Red Blood Cells # 0.0 Sodium Level 138 Potassium Level 3.6 Chloride Level 109 Carbon Dioxide Level 20 L Anion Gap 13 Blood Urea Nitrogen 4 L Creatinine 0.46 Glucose Level 82 Calcium Level 7.9 L Phosphorus Level 3.6 Magnesium Level 1.7 Albumin 3.0 L Medications Medications Current Medications Prenat Multivit/ [place]/Iron/Folic Ac () 1 tab DAILY PO Last administered on 06/03/17 09:22; Admin Dose 1 TAB; Start 06/01/17 at 09:00 Acetaminophen 650 mg 650 mg Q4H PRN PO PAIN AND OR ELEVATED TEMP Last administered on 06/03/17 09:25; Admin Dose 650 MG; Start 05/31/17 at 13:30 Sodium Chloride 1,000 ml @ 125 mls/hr Q8H IV Last administered on 06/03/17 09:23; Admin Dose 125 MLS/HR; Start 05/31/17 at 15:30 Ceftriaxone Sodium (Rocephin) 50 ml @ 100 mls/hr Q24H IVPB Last administered on 06/03/17 11:58; Admin Dose 100 MLS/HR; Start 06/02/17 at 11:00 EDI TORRES MD Jun 03, 2017 13:49
--- NOTE | 2017-06-03 13:57 | QN ---
Documentation Comment Afebrile Vital signs are stable Responding well to the present treatment WBC down to 8.3 Possible a.m. discharge on p.o. medication discussed, pending if okay with medical consult TANVIR GERBER MD Jun 03, 2017 13:57
[2017-06-03] MEDS ORDERED: GENTAMICIN 80 MG/NS (PMX) 50 ML IVPB SCH (19:00)
--- NOTE | 2017-06-04 01:23 | PN ---
DATE: 06/03/2017 SUBJECTIVE: No acute changes overnight. The patient is awake, feels good. She is afebrile. Denie s nausea, vomiting, diarrhea. No dysuria. WBC today 8.3, platelets 168, neutrophils 79.8, BUN 4, c reatinine 0.46. MICROBIOLOGY: Urine culture grew E. coli. Blood cultures remain negative. ANTIMICROBIALS: The patient is on Rocephin. PHYSICAL EXAMINATION: GENERAL: Well-nourished, well-developed young woman who is awake, in no distress. HEENT: Head atraumatic, normocephalic. Sclerae anicteric. Buccal mucosa pink. NECK: Supple. CHEST: Rise symmetrical. Breath sounds clear. HEART: S1, S2. ABDOMEN: Soft, bowel tones present. EXTREMITIES: No cyanosis. ASSESSMENT 1. Systemic inflammatory response syndrome. 2. Escherichia coli urinary tract infection. 3. . PLAN: The patient remains stable. Continue present care. Continue on current antibiotics. Follow recommendations of specialist. Dictated By: NONA AHUJA [facility] TECHNICIAN for MARGA ARZATE/BELTRAN Conf#: [id number] DID#: [id number]
[2017-06-04] MEDS: SOD CHLORIDE 0.9% 1,000 ML IV SCH (05:51)
[2017-06-04] MEDS: PRENATAL VITAMIN PO SCH (08:55)
[2017-06-04 10:50] LABS: BASOPHILS % 0.3 % (0.0-2.0); EOSINOPHILS # 0.1 10^3/ul (0.0-0.5); EOSINOPHILS % 0.9 % (0.0-7.0); HEMOGLOBIN 10.8 g/dl (12.0-16.0); LYMPHOCYTES # 1.1 10^3/ul (0.8-2.9); LYMPHOCYTES % 17.3 % (15.0-51.0); MEAN CORPUSCULAR HEMOGLOBIN 32.5 pg (29.0-33.0); MEAN CORPUSCULAR HGB CONC 33.8 g/dl (32.0-37.0); MEAN CORPUSCULAR VOLUME 96.4 fl (82.0-101.0); MEAN PLATELET VOLUME 10.8 fl (7.4-10.4); MONOCYTE # 0.5 10^3/ul (0.3-0.9); MONOCYTES % 8.2 % (0.0-11.0); NEUTROPHIL # 4.5 10^3/ul (1.6-7.5); NEUTROPHILS % 70.9 % (39.0-77.0); PLATELET COUNT 200 10^3/UL (140-415); RED BLOOD COUNT 3.32 10^6/ul (4.20-5.40); RED CELL DISTRIBUTION WIDTH 13.3 % (11.5-14.5); WHITE BLOOD COUNT 6.4 10^3/ul (4.8-10.8)
[2017-06-04] MEDS: CEFTRIAXONE 1 GM/50 ML (PMX) 50 ML IVPB SCH (10:51)
[2017-06-04 11:09] LABS: ALBUMIN 3.2 g/dl (3.3-4.9); CALCIUM 8.7 mg/dl (8.4-10.2); CREATININE 0.51 mg/dl (0.44-1.00); PHOSPHORUS 3.6 mg/dl (2.5-4.9); POTASSIUM 3.6 mmol/L (3.5-5.1)
[2017-06-04] MEDS ORDERED: POTASSIUM CHLORIDE (SR) 20 MEQ TAB PO STA (12:11)
--- NOTE | 2017-06-04 12:12 | PN ---
Date/Time of Note Date/Time of Note DATE: 06/04/17 TIME: 12:08 Assessment/Plan VTE Prophylaxis VTE Prophylaxis Intervention: ambulation Lines/Catheters IV Catheter Type (from Nrs): Peripheral IV Assessment/Plan Chief Complaint/Hosp Course 26 yo F presented with fevers and abdominal pressure with CVA tenderness bilaterally found to have pyelonephritis Problems: Assessment/Plan 1. Acute pyelonephritis- resolving - UA+ and Urine culture growing Ecoli - ID consulted and appreciate recommendations. Currently on Ceftriaxone - WBC normalized - CVA tenderness resolved - Tylenol PRN for fevers - Blood cultures negative 2. Hypokalemia - 3.6, replaced - continue to monitor 3. Iron deficiency anemia - Studies show low iron and TIBC - stable 4. Leukocytosis- resolved - Will continue to monitor 5. Intrauterine - care per primary OB team - On vitamins 6. Disposition - Will touch base with ID regarding length of antibiotics treatment to proceed with d/c planning Subjective 24 Hr Interval Summary Free Text/Dictation Patient doing well and denies any new complaints. No acute overnight events. Pain has resolved and no urinary symptoms. Requesting to speak with social working regarding insurance coverage of hospital stay. Exam/Review of Systems Vital Signs Vitals Vital Signs Date Time Temp Pulse Resp B/P Pulse Ox O2 Delivery O2 Flow Rate FiO2 05/31/17 10:36 98.6 102 20 96/54 100 Room Air Intake and Output 06/03/17 06/03/17 06/04/17 15:00 23:00 07:00 Intake Total 625 ml 1350 ml 875 ml Output Total 700 ml 1000 ml 1300 ml Balance -75 ml 350 ml -425 ml Exam Constitutional: alert, oriented, well developed, No distress Head: atraumatic, normocephalic Eyes: EOMI, PERRL Neck: non-tender, supple Respiratory: clear to auscultation, No crackles/rales, No diminished breath sounds, No wheezing Cardiovascular: regular rate and rhythm, No systolic murmur Gastrointestinal: distended, soft, No rebound or guarding, No tender Genitourinary - Female: no CVA tenderness Musculoskeletal: nl extremities to inspection Extremities: normal pulses, No clubbing, No cyanosis, Erythema LUE at site of previous IV insertion. Neurological: LEAD INGOT MOLDER II-XII intact, nl mental status, nl speech Results Result Diagram: 06/04/17 1012 06/04/17 1012 Results 24 hrs Laboratory Tests Test 06/04/17 10:12 White Blood Count 6.4 # Red Blood Count 3.32 L Hemoglobin 10.8 L Hematocrit 32.0 L Mean Corpuscular Volume 96.4 Mean Corpuscular Hemoglobin 32.5 Mean Corpuscular Hemoglobin Concent 33.8 Red Cell Distribution Width 13.3 Platelet Count 200 Mean Platelet Volume 10.8 H Neutrophils % 70.9 Lymphocytes % 17.3 Monocytes % 8.2 Eosinophils % 0.9 Basophils % 0.3 Nucleated Red Blood Cells % 0.0 Neutrophils # 4.5 Lymphocytes # 1.1 Monocytes # 0.5 Eosinophils # 0.1 Basophils # 0.0 Nucleated Red Blood Cells # 0.0 Sodium Level 137 Potassium Level 3.6 Chloride Level 105 Carbon Dioxide Level 21 Anion Gap 15 Blood Urea Nitrogen 4 L Creatinine 0.51 Glucose Level 146 # Calcium Level 8.7 Phosphorus Level 3.6 Albumin 3.2 L Medications Medications Current Medications Prenat Multivit/ [place]/Iron/Folic Ac () 1 tab DAILY PO Last administered on 06/04/17 08:55; Admin Dose 1 TAB; Start 06/01/17 at 09:00 Acetaminophen 650 mg 650 mg Q4H PRN PO PAIN AND OR ELEVATED TEMP Last administered on 06/03/17 09:25; Admin Dose 650 MG; Start 05/31/17 at 13:30 Sodium Chloride 1,000 ml @ 125 mls/hr Q8H IV Last administered on 06/04/17 05:51; Admin Dose 125 MLS/HR; Start 05/31/17 at 15:30 Ceftriaxone Sodium (Rocephin) 50 ml @ 100 mls/hr Q24H IVPB Last administered on 06/04/17 10:51; Admin Dose 100 MLS/HR; Start 06/02/17 at 11:00 EDI TORRES MD Jun 04, 2017 12:12
--- NOTE | 2017-06-04 12:45 | CONS ---
Date/Time of Note Date/Time of Note DATE: 06/04/17 TIME: 12:44 Consult Date/Type/Reason Admit Date/Time May 31, 2017 at 13:17 Initial Consult Date 05/31/17 Type of Consultation: ID Objective Vital Signs Date Time Temp Pulse Resp B/P Pulse Ox O2 Delivery O2 Flow Rate FiO2 05/31/17 10:36 98.6 102 20 96/54 100 Room Air Intake and Output 06/03/17 06/03/17 06/04/17 15:00 23:00 07:00 Intake Total 625 ml 1350 ml 875 ml Output Total 700 ml 1000 ml 1300 ml Balance -75 ml 350 ml -425 ml Results/Medications Result Diagram: 06/04/17 1012 06/04/17 1012 Results 24 hrs Laboratory Tests Test 06/04/17 10:12 White Blood Count 6.4 # Red Blood Count 3.32 L Hemoglobin 10.8 L Hematocrit 32.0 L Mean Corpuscular Volume 96.4 Mean Corpuscular Hemoglobin 32.5 Mean Corpuscular Hemoglobin Concent 33.8 Red Cell Distribution Width 13.3 Platelet Count 200 Mean Platelet Volume 10.8 H Neutrophils % 70.9 Lymphocytes % 17.3 Monocytes % 8.2 Eosinophils % 0.9 Basophils % 0.3 Nucleated Red Blood Cells % 0.0 Neutrophils # 4.5 Lymphocytes # 1.1 Monocytes # 0.5 Eosinophils # 0.1 Basophils # 0.0 Nucleated Red Blood Cells # 0.0 Sodium Level 137 Potassium Level 3.6 Chloride Level 105 Carbon Dioxide Level 21 Anion Gap 15 Blood Urea Nitrogen 4 L Creatinine 0.51 Glucose Level 146 # Calcium Level 8.7 Phosphorus Level 3.6 Albumin 3.2 L Medications Current Medications Prenat Multivit/ [employer] In[employer]/Iron/Folic Ac () 1 tab DAILY PO Last administered on 06/04/17 08:55; Admin Dose 1 TAB; Start 06/01/17 at 09:00 Acetaminophen 650 mg 650 mg Q4H PRN PO PAIN AND OR ELEVATED TEMP Last administered on 06/03/17 09:25; Admin Dose 650 MG; Start 05/31/17 at 13:30 Sodium Chloride 1,000 ml @ 125 mls/hr Q8H IV Last administered on 06/04/17 05:51; Admin Dose 125 MLS/HR; Start 05/31/17 at 15:30 Ceftriaxone Sodium (Rocephin) 50 ml @ 100 mls/hr Q24H IVPB Last administered on 06/04/17t 10:51; Admin Dose 100 MLS/HR; Start 06/02/17 at 11:00 Assessment/Plan Chief Complaint/Hosp Course SUBJECTIVE: No acute changes overnight. No fevers MICROBIOLOGY: Urine culture grew E. coli. Blood cultures remain negative. ANTIMICROBIALS: The patient is on Rocephin. PHYSICAL EXAMINATION: GENERAL: Well-nourished, well-developed young woman who is awake, in no distress. HEENT: Head atraumatic, normocephalic. Sclerae anicteric. Buccal mucosa pink. NECK: Supple. CHEST: Rise symmetrical. Breath sounds clear. HEART: S1, S2. ABDOMEN: Soft, bowel tones present. EXTREMITIES: No cyanosis. ASSESSMENT 1. Systemic inflammatory response syndrome. 2. Escherichia coli urinary tract infection. 3. . PLAN: The patient remains stable. Anticipate dc on PO Keflex once medically cleared to complete treatment for UTI DW staff Problems: NONA AHUJA NP Jun 04, 2017 12:45
[2017-06-04] MEDS ORDERED: CEPH-443 PO (14:22)
--- NOTE | 2017-06-04 15:25 | QN ---
Documentation Comment 25+wks GA with Pyelonephritis,VS stable afebrile VS stable Gen NAD Abd soft NT ND No CVA tenderness --->Discharged on Po Antibiotics KARIME WILD M.D. Jun 04, 2017 15:25
--- NOTE | 2017-06-04 15:28 | DS ---
Date/Time of Note Date/Time of Note DATE: 06/04/17 TIME: 15:27 Discharge Summary Admission/Discharge Info Admit Date/Time May 31, 2017 at 13:17 Discharge Date/Time 06/04/17 Discharge Diagnosis Pyelonephritis Patient Condition: Good Hospital Course SUBJECTIVE: No acute changes overnight. No fevers MICROBIOLOGY: Urine culture grew E. coli. Blood cultures remain negative. ANTIMICROBIALS: The patient is on Rocephin. PHYSICAL EXAMINATION: GENERAL: Well-nourished, well-developed young woman who is awake, in no distress. HEENT: Head atraumatic, normocephalic. Sclerae anicteric. Buccal mucosa pink. NECK: Supple. CHEST: Rise symmetrical. Breath sounds clear. HEART: S1, S2. ABDOMEN: Soft, bowel tones present. EXTREMITIES: No cyanosis. ASSESSMENT 1. Systemic inflammatory response syndrome. 2. Escherichia coli urinary tract infection. 3. . PLAN: The patient remains stable. Anticipate dc on PO Keflex once medically cleared to complete treatment for UTI DW staff Home Meds Active Scripts Acetaminophen* (Tylenol*) 325 Mg Tablet, 2 TAB PO Q6 Y for PAIN AND OR ELEVATED TEMP, #20 TAB Prov:TONE SEGURA 01/29/17 Primary Care Provider Care Physician No Primary Pending Labs Laboratory Tests Test 06/04/17 10:12 White Blood Count 6.410^3/ul (4.8-10.8) Red Blood Count 3.3210^6/ul (4.20-5.40) Hemoglobin 10.8g/dl (12.0-16.0) Hematocrit 32.0% (37.0-47.0) Mean Corpuscular Volume 96.4fl (82.0-101.0) Mean Corpuscular Hemoglobin 32.5pg (29.0-33.0) Mean Corpuscular Hemoglobin Concent 33.8g/dl (32.0-37.0) Red Cell Distribution Width 13.3% (11.5-14.5) Platelet Count 90739^3/UL (140-415) Mean Platelet Volume 10.8fl (7.4-10.4) Neutrophils % 70.9% (39.0-77.0) Lymphocytes % 17.3% (15.0-51.0) Monocytes % 8.2% (0.0-11.0) Eosinophils % 0.9% (0.0-7.0) Basophils % 0.3% (0.0-2.0) Nucleated Red Blood Cells % 0.0/100WBC (0.0-0.0) Neutrophils # 4.510^3/ul (1.6-7.5) Lymphocytes # 1.110^3/ul (0.8-2.9) Monocytes # 0.510^3/ul (0.3-0.9) Eosinophils # 0.110^3/ul (0.0-0.5) Basophils # 0.010^3/ul (0.0-0.1) Nucleated Red Blood Cells # 0.010^3/ul (0.0-0.0) Sodium Level 137mmol/L (135-144) Potassium Level 3.6mmol/L (3.5-5.1) Chloride Level 105mmol/L (97-110) Carbon Dioxide Level 21mmol/L (21-31) Anion Gap 15 (8-16) Blood Urea Nitrogen 4mg/dl (7-20) Creatinine 0.51mg/dl (0.44-1.00) Glucose Level 146mg/dl (70-220) Calcium Level 8.7mg/dl (8.4-10.2) Phosphorus Level 3.6mg/dl (2.5-4.9) Albumin 3.2g/dl (3.3-4.9) KARIME WILD M.D. Jun 04, 2017 15:28
== END 2017-06-04 17:52 | disposition home or self-care (01) | DRG 781 ==
LOC: OBT 10:08 → L-D 10:08 → OBT 13:15 → OBG 13:17
PROVIDERS: ADMIT Obstetrics & Gynecology; ATTEND Obstetrics & Gynecology
DX: O23.42 Unspecified infection of urinary tract in pregnancy, second trimester (principal); B96.20 Unspecified Escherichia coli [E. coli] as the cause of diseases classified elsewhere; O99.012 Anemia complicating pregnancy, second trimester; Z3A.24 24 weeks gestation of pregnancy; J02.9 Acute pharyngitis, unspecified
CPT/HCPCS: 36415; 76815; 76817; 80053; 80069; 81001; 83540; 83735; 85025; 87040; 87070; 87086; 96360; 96361; G0463; J0290; J0696; J1580; J3475; J3480; J7030; J7120

== ENCOUNTER 2017-09-02 08:45 | Inpatient (IN) | END 2017-09-05 15:50 | disposition home or self-care (01) | DRG 766 ==